=== PATIENT | female | born 1995 | race Caucasian/White ===

== ENCOUNTER 2016-07-06 17:26 | Emergency (ER) | payer OTHER ==
[~2016-07-06] VITALS: Ht 162.6 cm; Wt 122.3 kg
[~2016-07-06 17:26] MED LIST: ANSHCCR/ TOP; CLBCRM30 TOP; FRS/40 PO; HYDR-5688 PO; LISD70CA PO; MTR600 PO; MULT-506 PO; NAPR550T22 PO; ONDA8TAB6 PO; RIZA10TA18 PO; SUMA6KIT SC; TACR0.1O18 TOP; TIZA4CAP PO; TRMCR130WC TOP; VALA1TAB31 PO; Ventolin HFA INH; ZIPR20CA PO
[2016-07-06 17:30] VITALS: TEMP 36.9; Ht 162.6 cm; Wt 122.3 kg
--- NOTE | 2016-07-06 17:53 | DIAGNOSTIC IMAGING REPORT ---
RIGHT HAND MIN 3 VIEWS ROUTINE CLINICAL HISTORY: RIGHT, EVAL FX, PUNCHED A WALL Right trauma COMPARISON: 01/26/2016 DISCUSSION: The bones and joint spaces appear intact. There is no evidence of fracture, dislocation or bony disease. Mild soft tissue edema IMPRESSION: No acute bony abnormality. Mild soft tissue edema Electronically signed by: Jorge Dominguez M.D. 07/06/2016 5:51 PM Dictated Date/Time: 07/06/2016 5:50 PM
[2016-07-06 18:29] VITALS: BP 116/72; PULSE 85; O2SAT 97
--- NOTE | 2016-07-06 18:34 | EMERGENCY ROOM VISIT NOTE ---
ED Visit Note First contact with patient: 17:38 CHIEF COMPLAINT: Right hand pain after punching a wall 30 minutes ago HISTORY OF PRESENT ILLNESS: Patient is a [id number] 21-year-old white female who punched a wall in anger about 30 minutes ago. She complains of pain in the dorsum of her hand. She applied ice. She rates her pain an 8/10. She does not have any prior history of fractures to this hand. There was no audible cracking sound at the time of the injury. REVIEW OF SYSTEMS:Review of systems as per HPI. All other systems reviewed were negative. At least 6 systems reviewed. PMH: Electronic medical records are reviewed and summarized as above/below. See Problem List. SOCIAL HISTORY: Patient lives at home. Smoker. PHYSICAL EXAM: Vital Signs: Reviewed Nurse's notes. CONSTITUTIONAL: Patient is an obese 46-year-old white female who is awake and alert and in no acute distress. MUSCULOSKELETAL: Examination of the right hand show mild soft tissue swelling across the dorsum of the hand. She is tenderness over the distal fifth , fourth and third metacarpals without obvious deformity or fracture crepitus. Wrist is nontender. She has full range of motion of her fingers. The skin is intact. Flexion and extension of the fingers is full and strong. Pulses and capillary refill are intact. EMERGENCY DEPARTMENT COURSE: An x-ray of the hand revealed soft tissue swelling but no fractures. She was wrapped with an Familia wrap. Supportive care measures were discussed. Differential diagnosis includes fracture, sprain, dislocation, contusion. Problem List Medical Problems: (1) Abdominal pain Status: Resolved (2) Abdominal pain Status: Resolved (3) Acute bronchitis Status: Resolved (4) ADHD (attention deficit hyperactivity disorder) Status: Chronic (5) ASTHMA, UNSPECIFIED Status: Chronic (6) Atypical chest pain Status: Resolved (7) Avulsion fracture of metatarsal bone of left foot Status: Resolved (8) Bipolar disorder Status: Chronic (9) Bleeding from wound Status: Resolved (10) Body piercing Status: Resolved (11) Body piercing Status: Resolved (12) Calf pain Status: Resolved (13) Chest pain Status: Resolved (14) Constipation Status: Resolved (15) Constipation Status: Resolved (16) Contusion of hand, right Status: Resolved (17) Dehydration Status: Resolved (18) Dizziness Status: Resolved (19) Dog bite Status: Resolved (20) Dyspnea Status: Resolved (21) Ectopic Status: Resolved (22) Gastric ulcer Status: Resolved (23) Hand contusion Status: Resolved (24) Headache Status: Resolved (25) Headache Status: Resolved (26) History Of Tobacco Use Status: Chronic (27) Hypokalemia Status: Resolved (28) Injury of right hand Status: Resolved (29) Migraine Unspecified W/O Intract Mgrn W/O Status Migrainosus Status: Chronic (30) Nausea Status: Resolved (31) Non-cardiac chest pain Status: Resolved (32) Periumbilical abdominal pain Status: Resolved (33) Right calf pain Status: Resolved (34) RUQ abdominal pain Status: Resolved (35) Shoulder strain Status: Resolved (36) Strain of left foot Status: Resolved (37) Sunburn Status: Resolved (38) Threatened miscarriage in early Status: Resolved (39) Vasovagal syncope Status: Resolved Surgical Problems: (1) History of endoscopy Status: Resolved (2) Hx of cholecystectomy Status: Resolved (3) S/P tonsillectomy and adenoidectomy Status: Resolved Current/Historical Medications Scheduled Lisdexamfetamine Dimesylate (Vyvanse), 70 MG PO DAILY Multivitamin (Multivitamin), 1 TAB PO DAILY Ziprasidone Hcl (Geodon), 40 MG PO DAILY Scheduled PRN Clobetasol Propionate (Clobetasol Propionate Cream 0.05%), 1 APPLN TOP UD PRN for Affected Skin Folds Furosemide (Lasix), 40 MG PO DAILY PRN for Edema Naproxen Sodium (Naprosyn Ds), 550 MG PO UD PRN for Headache Ondansetron Hcl (Zofran), 8 MG PO Q8 PRN for Nausea Rizatriptan Benzoate (Maxalt), 10 MG PO UD PRN for Migraine Sumatriptan Succinate (Imitrex Statdose), 6 MG SC UD PRN for Migraine Tizanidine (Zanaflex), 2-8 MG PO HS PRN for Neck Spasm Triamcinolone Acet (Aristocort 0.1%), 1 APPLN TOP BID PRN for Affected Area(s) Valacyclovir Hcl (Valtrex), 1 GM PO BID PRN for Cold Sore(s) [Ventolin HFA], 2 PUFFS INH QID PRN for SOB/Wheezing Allergies Coded Allergies: Dicyclomine (Verified Allergy, Unknown, ., 07/06/16) Estrogens (Verified Adverse Reaction, Unknown, MIGRAINES, 07/06/16) Vital Signs Date Time Temp Pulse Resp B/P Pulse Ox O2 Delivery O2 Flow Rate FiO2 07/06/16 18:29 85 16 116/72 97 07/06/16 17:30 36.9 82 20 129/87 97 Room Air Departure Information Impression Primary Impression: Hand contusion Referrals Bean Hernandez M.D.([facility]) (PCP) Patient Instructions My [facility] Additional Instructions Ibuprofen(Motrin, Advil) may be used for fever or pain. Use 600mg every six hours as needed. Take with food. Avoid using more than 2400mg in a 24 hour period. Do not use 2400mg per day for more than three consecutive days without physician direction. Prolonged inappropriate use can lead to stomach upset or ulcers. This medication can be taken if you need to drive, work, or perform activities which may be dangerous when taking narcotic pain medication. (AND/OR) Acetaminophen(Tylenol) may be used for fever or pain. Use 1000mg every six hours as needed. Avoid using more than 3000mg in a 24 hour period. This medication can be taken if you need to drive, work, or perform activities which may be dangerous when taking narcotic pain medication. Ice compresses for 20 minutes at a time four times daily for 2-3 days. Use the Familia wrap as instructed. Rest and elevate your injury. Continue current medications. Return to the ER immediately for any numbness, tingling, severe pain, extreme swelling in the extremity or as needed. Followup with your family doctor or orthopedic surgery if no improvement in 5-7 days. Problem Qualifiers Primary Impression: Hand contusion Encounter type: initial encounter Laterality: right Qualified Codes: S60.221A - Contusion of right hand, initial encounter
== END 2016-07-06 18:40 | disposition home or self-care (01) ==
LOC: C.EDB 17:27 → C.EDD 18:40
DX: S60.221A Contusion of right hand, initial encounter (principal); W22.8XXA Striking against or struck by other objects, initial encounter; F90.9 Attention-deficit hyperactivity disorder, unspecified type; J45.909 Unspecified asthma, uncomplicated; F31.9 Bipolar disorder, unspecified; G43.909 Migraine, unspecified, not intractable, without status migrainosus; F17.210 Nicotine dependence, cigarettes, uncomplicated; Z79.899 Other long term (current) drug therapy

== ENCOUNTER 2016-09-04 00:49 | Emergency (ER) | payer OTHER ==
[~2016-09-04] VITALS: Ht 162.6 cm; Wt 122.1 kg
[~2016-09-04 00:49] MED LIST changes: -ANSHCCR/ TOP; -HYDR-5688 PO; -MTR600 PO; -TACR0.1O18 TOP
[2016-09-04 00:55] VITALS: TEMP 36.8; Ht 162.6 cm; Wt 122.1 kg
[2016-09-04] MEDS ORDERED: BUPR75TA20 PO (01:12)
[2016-09-04 01:35] VITALS: BP 131/92; PULSE 81; O2SAT 97
--- NOTE | 2016-09-04 02:32 | EMERGENCY ROOM VISIT NOTE ---
ED Visit Note First contact with patient: 00:58 CHIEF COMPLAINT: Hand injury HISTORY OF PRESENT ILLNESS: This 21-year-old female patient presented to the emergency department after they injured the right hand after punching a refrigerator about 30 minutes ago. The patient was having an argument with her mother and was angry. The patient rates the pain as dull and 8/10. The patient denies any numbness or tingling. The patient does not have injuries to the wrist. The patient has not had a previous fracture to this hand. REVIEW OF SYSTEMS: A 6 system review of systems was completed with positives and pertinent negatives in the HPI. ALLERGIES: See EMR MEDICATIONS: See EMR PMH: See EMR SOCIAL HISTORY: Lives locally with family PHYSICAL EXAM: Vital Signs: Reviewed Nurse's notes, vital signs stable. GENERAL : White female, in no acute distress, but appears to be in pain, well-developed , well-nourished. MUSCULOSKELETAL: There is no deformity of the right hand. There is tenderness over the fourth metacarpal. There is no thenar or hypothenar eminence atrophy. Normal thumb opposition to all fingers. Child Support Investigator strength 2/5. There is no laceration. Capillary refill less than 2 seconds. No tenderness of the fingers or wrist. Full range of motion of the wrist. No snuff box tenderness. Radial pulse 2+. NEURO: Alert and oriented to person, place, and time. Normal sensation to light and sharp touch. EMERGENCY DEPARTMENT COURSE: Physical exam and history were performed. Nursing notes and EMR were reviewed. The patient appears to have suffered injury to her right hand. X-ray was obtained and does not appear to show obvious fracture with radiology report pending. The patient was placed in an Familia wrap for comfort. She is to follow with her primary care physician or with her orthopedist for ongoing care and evaluation. She is otherwise back to the ER with any new, worsening, or concerning symptoms. Problem List Medical Problems: (1) Abdominal pain Status: Resolved (2) Abdominal pain Status: Resolved (3) Acute bronchitis Status: Resolved (4) ADHD (attention deficit hyperactivity disorder) Status: Chronic (5) ASTHMA, UNSPECIFIED Status: Chronic (6) Atypical chest pain Status: Resolved (7) Avulsion fracture of metatarsal bone of left foot Status: Resolved (8) Bipolar disorder Status: Chronic (9) Bleeding from wound Status: Resolved (10) Body piercing Status: Resolved (11) Body piercing Status: Resolved (12) Calf pain Status: Resolved (13) Chest pain Status: Resolved (14) Constipation Status: Resolved (15) Constipation Status: Resolved (16) Contusion of hand, right Status: Resolved (17) Dehydration Status: Resolved (18) Dizziness Status: Resolved (19) Dog bite Status: Resolved (20) Dyspnea Status: Resolved (21) Ectopic Status: Resolved (22) Gastric ulcer Status: Resolved (23) Hand contusion Status: Resolved (24) Headache Status: Resolved (25) Headache Status: Resolved (26) History Of Tobacco Use Status: Chronic (27) Hypokalemia Status: Resolved (28) Injury of right hand Status: Resolved (29) Migraine Unspecified W/O Intract Mgrn W/O Status Migrainosus Status: Chronic (30) Nausea Status: Resolved (31) Non-cardiac chest pain Status: Resolved (32) Periumbilical abdominal pain Status: Resolved (33) Right calf pain Status: Resolved (34) RUQ abdominal pain Status: Resolved (35) Shoulder strain Status: Resolved (36) Strain of left foot Status: Resolved (37) Sunburn Status: Resolved (38) Threatened miscarriage in early Status: Resolved (39) Vasovagal syncope Status: Resolved Surgical Problems: (1) History of endoscopy Status: Resolved (2) Hx of cholecystectomy Status: Resolved (3) S/P tonsillectomy and adenoidectomy Status: Resolved Current/Historical Medications Scheduled Bupropion (Wellbutrin), Unknown Dose PO DAILY Lisdexamfetamine Dimesylate (Vyvanse), 70 MG PO DAILY Multivitamin (Multivitamin), 1 TAB PO DAILY Ziprasidone Hcl (Geodon), 40 MG PO DAILY Scheduled PRN Clobetasol Propionate (Clobetasol Propionate Cream 0.05%), 1 APPLN TOP UD PRN for Affected Skin Folds Furosemide (Lasix), 40 MG PO DAILY PRN for Edema Naproxen Sodium (Naprosyn Ds), 550 MG PO UD PRN for Headache Ondansetron Hcl (Zofran), 8 MG PO Q8 PRN for Nausea Rizatriptan Benzoate (Maxalt), 10 MG PO UD PRN for Migraine Sumatriptan Succinate (Imitrex Statdose), 6 MG SC UD PRN for Migraine Tizanidine (Zanaflex), 2-8 MG PO HS PRN for Neck Spasm Triamcinolone Acet (Aristocort 0.1%), 1 APPLN TOP BID PRN for Affected Area(s) Valacyclovir Hcl (Valtrex), 1 GM PO BID PRN for Cold Sore(s) [Ventolin HFA], 2 PUFFS INH QID PRN for SOB/Wheezing Allergies Coded Allergies: Dicyclomine (Verified Allergy, Unknown, ., 09/04/16) Estrogens (Verified Adverse Reaction, Unknown, MIGRAINES, 09/04/16) Vital Signs Date Time Temp Pulse Resp B/P Pulse Ox O2 Delivery O2 Flow Rate FiO2 09/04/16 01:35 81 16 131/92 97 09/04/16 00:55 36.8 73 20 118/80 100 Room Air Departure Information Impression Primary Impression: Injury of right hand Dispostion Home / Self-Care Condition GOOD Forms HOME CARE DOCUMENTATION FORM, IMPORTANT VISIT INFORMATION Patient Instructions My [facility] Additional Instructions You were seen and evaluated today on an emergency basis only. This is not a substitute for, or an effort to provide, complete comprehensive medical care. It is not possible to recognize and treat all injuries or illnesses in a single emergency department visit. For this reason it is recommended that you followup with your primary care physician with any ongoing or persisting symptoms. For baseline pain relief you may alternate ibuprofen and acetaminophen every 4 hours for pain control. Take 600 mg ibuprofen (Advil) and then 4 hours later take 1000 mg acetaminophen (Tylenol). Do not take more than 3000 mg acetaminophen in a single day. Apply ice 20 minutes on and 20 minutes off as needed for additional relief of symptoms. You are welcome to return to the emergency department anytime with new, worsening, or concerning symptoms.
--- NOTE | 2016-09-04 07:46 | DIAGNOSTIC IMAGING REPORT ---
RIGHT HAND 3 VIEWS HISTORY: Right hand injury. Punched fridge Right COMPARISON: Right hand 07/06/2016. FINDINGS: There is no fracture or dislocation. Soft tissue swelling at the MCP joints. No radiopaque foreign bodies. IMPRESSION: No fractures. Electronically signed by: Maykel Brantley M.D. 09/04/2016 7:44 AM Dictated Date/Time: 09/04/2016 7:42 AM
== END 2016-09-04 01:35 | disposition home or self-care (01) ==
LOC: C.EDB 00:49 → C.EDA 01:35
DX: S69.91XA Unspecified injury of right wrist, hand and finger(s), initial encounter (principal); M79.641 Pain in right hand; W22.8XXA Striking against or struck by other objects, initial encounter; Y92.89 Other specified places as the place of occurrence of the external cause; F31.9 Bipolar disorder, unspecified; F90.9 Attention-deficit hyperactivity disorder, unspecified type